=== PATIENT | male | born 1955 | race African-American/Black ===

== ENCOUNTER 2020-06-25 12:07 | Inpatient (IN) | payer OTHER ==
[2020-06-25 12:27] VITALS: BMI 30.6
[2020-06-25] MEDS ORDERED: SODIUM CHLORIDE 1,000 ML IV ONE (12:28)
[2020-06-25 13:03] LABS: VENOUS BASE EXCESS -2.2 mmol/L (-2-2); VENOUS O2 SATURATION 47.8 % (70-80); VENOUS PCO2 60.3 mmHg (38-52); VENOUS PH 7.262 (7.310-7.410)
[2020-06-25 13:04] LABS: BASO % 0.4 % (0-2.0); EOS % 0.1 % (0-4.5); HEMATOCRIT 50.7 % (35.4-49); HEMOGLOBIN 16.5 GM/dL (11.7-16.9); LYMPH % 9.6 % (8-40); MCH 26.3 pg (25.7-33.7); MCHC 32.5 g/dl (32.0-35.9); MEAN CELL VOLUME 80.9 fl (80-96); MEAN PLT VOLUME 9.1 fl (7.5-11.1); MONO % 5.8 % (3.8-10.2); NEUT % 84.1 % (42.8-82.8); PLATELET COUNT 212 K/MM3 (134-434); RBC 6.27 M/mm3 (4.00-5.60); WHITE BLOOD COUNT 15.9 K/mm3 (4.0-10.0)
--- NOTE | 2020-06-25 13:11 | PDOC ---
History of Present Illness - General Chief Complaint: Altered Mental Status Stated Complaint: Blood Sugar Problem Time Seen by Provider: 06/25/20 12:34 History Source: Patient, Spouse Exam Limitations: No Limitations - History of Present Illness Initial Comments: 06/25/20 12:57 64M PMH DM HTN c/o N/V, weakness, thristy, polyuria x6 days. unable to tolerate PO. no cp/sob. denies cough/sore throat/runny nose. NKDA. Past History - Medical History Allergies/Adverse Reactions: Allergies Allergy/AdvReac Type Severity Reaction Status Date / Time No Known Allergies Allergy Verified 06/25/20 12:21 Home Medications: Ambulatory Orders Glipizide [Glipizide ER] 10 mg PO DAILY 06/25/20 Hydrochlorothiazide 25 mg PO DAILY 06/25/20 Losartan Potassium 25 mg PO DAILY 06/25/20 Lovastatin 10 mg PO DAILY 06/25/20 Sildenafil Citrate 100 mg PO DAILY 06/25/20 COPD: No Diabetes: Yes HTN: Yes - Psycho-Social/Smoking History Smoking History: Never smoked - Substance Abuse Hx (Audit-C & DAST Scrn) How often the patient has a drink containing alcohol: Never Score: In Men: 4 or > Positive; In Women: 3 or > Positive: 0 Screen Result (Pos requires Nsg. Audit-10AR): Negative Review of Systems - Review of Systems Comments:: CONSTITUTIONAL: Denies F / C HEENT: +thrist. Denies sore throat, rhinorrhea RESP: Denies SOB, cough CARD: Denies chest pain GI: + N / V, inability to tolerate PO : + urinary frequency NEURO: Denies numbness, tingling, weakness MSK: Denies back pain SKIN: Denies rashes *Physical Exam - Vital Signs Last Vital Signs Temp Pulse Resp BP Pulse Ox 98.0 F 80 20 120/82 98 06/25/20 12:22 06/25/20 12:22 06/25/20 12:22 06/25/20 12:22 06/25/20 12:22 - Physical Exam GEN: awake and alert HEENT: NC/AT, EOMI, PERRL. Normal voice. Supple neck w/ FROM. CV: S1/S2, RRR, no m/r/g LUNG: CTAB, no wheezes, crackles, rales, rhonchi. GI: Obese, soft, ndnt, +BS, no guarding, no rebound. MSK: contracted RUE o/w no obvious deformities SKIN: Warm, dry, no rashes appreciated. PSYCH: Normal mood and affect. NEURO: Moving all extremities aside from contracted RUE. ED Treatment Course - LABORATORY CBC & Chemistry Diagram: 06/25/20 12:49 06/25/20 21:30 - ADDITIONAL ORDERS Additional order review: Laboratory Results 06/25/20 12:21 POC Glucometer > 600 06/25/20 12:21 POC Glucometer > 600 Medical Decision Making - Medical Decision Making 64M diabetic w/ 1 week of n/v/weakness, polyuria, thirst, and PO intolerance. BGM >600. Concern for DKA vs HHS. Will evaluate for infectious etiologies. - CBC, CMP, Beta-hydroxybutyrate - VBG - CXR - EKG - Fluids 06/25/20 13:53 labs were reviewed acidosis, beta hydroxybutyrate elevated, Bicarb wnl, no elevated anion gap, glc 700s Pt is hyperglycemic at this point but does not meet HHS or DKA criteria; borderline DKA. will recheck BMP and BGM he has received 2L NS will provide 1L LR with 20mEq K will provide 8 units insulin 06/25/20 15:[address] Owen for admission to telemetry; requesting consult to be placed for Dr. Blanchard. 06/25/20 22:00 EKG 12:10 HR 84 axis and intervals nl, NSR, no MARIBEL/D, no TWI Discharge - Discharge Information Problems reviewed: Yes Clinical Impression/Diagnosis: DKA (diabetic ketoacidoses) Qualifiers: Diabetes mellitus type: other specified (including ROBERT) Diabetes mellitus complication detail: without coma Qualified Code(s): E13.10 - Other specified diabetes mellitus with ketoacidosis without coma Condition: Fair - Follow up/Referral - Patient Discharge Instructions - Post Discharge Activity
[2020-06-25 13:16] LABS: EPI CELLS 1 /uL (0-25.1); HYALINE CASTS 0 /uL (0-3.1); PH,URINE 5.5 (5.0-8.0); URINE APPEARANCE CLEAR; URINE BACTERIA 8 /uL (0-1359); URINE BILIRUBIN NEGATIVE (NEGATIVE); URINE COLOR YELLOW; URINE GLUCOSE (UA) 3+ (NEGATIVE); URINE KETONE 1+ (NEGATIVE); URINE LEUK ESTERASE NEGATIVE (NEGATIVE); URINE NITRITE NEGATIVE (NEGATIVE); URINE PROTEIN NEGATIVE (NEGATIVE); URINE RBC 2 /uL (0-23.9); URINE UROBILINOGEN 0.2 mg/dL (0.2-1.0); URINE WBC 2 /uL (0-25.8)
[2020-06-25 13:26] LABS: ALBUMIN 3.8 g/dl (3.4-5.0); BILIRUBIN,TOTAL 1.1 mg/dL (0.2-1); BLOOD UREA NITROGEN 66.9 mg/dL (7-18); CALCIUM 9.3 mg/dL (8.5-10.1); CREATININE 2.7 mg/dL (0.55-1.3); POTASSIUM 4.5 mmol/L (3.5-5.1); TOT PROT 8.2 g/dl (6.4-8.2)
--- NOTE | 2020-06-25 13:39 | EKG ---
Test Reason : Blood Pressure : / mmHG Vent. Rate : 084 BPM Atrial Rate : 084 BPM P-R Int : 154 ms QRS Dur : 080 ms QT Int : 386 ms P-R-T Axes : 051 -07 021 degrees QTc Int : 456 ms NORMAL SINUS RHYTHM NORMAL ECG NO PREVIOUS ECGS AVAILABLE Confirmed by Luis Armando Ewing MD ([id number]) on 06/25/2020 1:39:03 PM Referred By: Confirmed By:Luis Armando Ewing MD
[2020-06-25] MEDS ORDERED: INSULIN REGULAR HUMAN 100 UNITS/ML *VIAL IVPUSH ONE (13:53)
[2020-06-25] MEDS ORDERED: POTASSIUM CHLORIDE 20 MEQ in LACTATED RINGERS SOLUTION 1,000 ML IV ONE (14:02)
[2020-06-25 14:10] LABS: INR 1.03 (0.83-1.09); PROTHROMBIN TIME (PATIENT) 12.1 SEC (9.7-13.0)
[2020-06-25 14:13] LABS: ACTIVATED PTT 23.4 SECONDS (25.2-36.5)
--- NOTE | 2020-06-25 14:14 | PDOC ---
Attending Attestation - Resident Resident Name: IbarraEmmanuel - ED Attending Attestation I have performed the following: I have examined & evaluated the patient, The case was reviewed & discussed with the resident, I agree w/resident's findings & plan - HPI HPI: 06/25/20 14:11 64-year-old male with history of xdk-jllhdqf-vvqpwgyeb diabetes presents with generalized weakness, nausea/vomiting, hyperglycemia. Some chills but no measured fevers or symptoms of infectious process. Reportedly compliant with medications, but not with diet. - Physicial Exam PE: 06/25/20 14:12 Afebrile, vital signs stable, foike-ck-dfwy glucose over 500 Dry mucosa Heart is regular, lungs are clear Abdomen benign Chronic atrophied right upper extremity, no edema Neurologically nonfocal - Critical Care Time Total Critical Care Time: 70 Critical Care Statement: The care of this patient involved high complexity decision making to prevent further life threatening deterioration of the patient's condition and/or to evaluate & treat vital organ system(s) failure or risk of failure. - Medical Decision Making 06/25/20 14:13 64-year-old male with history of xzg-iqnmkwn-iklfbykat diabetes presents with hyperglycemia and generalized weakness/nausea/vomiting, rule out DKA versus hyperosmolar state. r/o infectious process. labs, ua ekg, cxr ivf, insulin admit Heart Score/ECG Review #1 ECG reviewed & interpreted by me at: 12:10 General ECG Interpretation: Sinus Rhythm, Normal Rate (84), Normal Intervals (qtc 456), No acute ischemic changes Discharge - Discharge Information Problems reviewed: Yes Clinical Impression/Diagnosis: DKA (diabetic ketoacidoses) Qualifiers: Diabetes mellitus type: other specified (including ROBERT) Diabetes mellitus complication detail: without coma Qualified Code(s): E13.10 - Other specified diabetes mellitus with ketoacidosis without coma Condition: Fair - Follow up/Referral Referrals: Juan José Negrete MD [Primary Care Provider] - - Patient Discharge Instructions - Post Discharge Activity
[2020-06-25] MEDS ORDERED: ACETAMINOPHEN 325 MG TABLET (FP) PO PRN (15:28)
--- OUTSIDE RECORDS SUMMARY | 2020-06-25 15:38 | XMS ---
:1955 [facility] Support Name Relationship Address Phone RE Unavailable Unavailable Unavailable MAXIMO ESPINOZA [address] [facility] [phone] [id number] EMPLOYER Unavailable Unavailable Unavailable Re-disclosure Warning The records that you are about to access may contain information from federally- assisted alcohol or drug abuse programs. If such information is present, then the following federally mandated warning applies: This information has been disclosed to you from records protected by federal confidentiality rules (42 CFR part 2). The federal rules prohibit you from making any further disclosure of this information unless further disclosure is expressly permitted by the written consent of the person to whom it pertains or as otherwise permitted by 42 CFR part 2. A general authorization for the release of medical or other information is NOT sufficient for this purpose. The Federal rules restrict any use of the information to criminally investigate or prosecute any alcohol or drug abuse patient.The records that you are about to access may contain highly sensitive health information, the redisclosure of which is protected by Article 27-F of the [place] State Public Health law. If you continue you may haveaccess to information: Regarding HIV / AIDS; Provided by facilities licensed or operated by the [facility] Office of Mental Health; or Provided by the [facility] Office for People With Developmental Disabilities. If such information is present, then the following [facility] mandated warning applies: This information has been disclosed to you from confidential records which are protected by state law. State law prohibits you from making any further disclosure of this information without the specific written consent of the person to whom it pertains, or as otherwise permitted by law. Any unauthorized further disclosure in violation of state law may result in a fine or fci sentence or both. A general authorization for the release of medical or other information is NOT sufficient authorization for further disclosure. Encounters Encounter Providers Location Date Indications Data Source(s ) Outpatient 06/07/2020 04:50:00 [facility]T [facility] Outpatient 06/07/2020 12:00:00 [facility] AM EDT Center Insurance Providers Payer name Policy type Policy ID Covered Covered republican's Policy P ariel / Coverage republican ID relationship to [employer] Inf ormation type are[employer]o HIP MEDICARE [id number] [facility] [id number] 01 [id number] [place] [id number] S [id number] [place] Medicare [id number] S [id number] A [facility] Services Problems, Conditions, and Diagnoses Code Display Name Description Problem Type Effective Data Sour ce(s) Dates 401.9 UNSPECIFIED Hypertenstion Diagnosis 11/22/2018 RADHA ( [facility] ESSENTIAL unsepecified 07:12:36 PM Sid HYPERTENSION [facility]) 427.9 CARDIAC CARDIAC ARRYTHMIA Diagnosis 11/22/2018 KAMILA Gould ([facility] DYSRHYTHMIA 07:12:36 PM Sid UNSPECIFIED [facility])
[2020-06-25 15:43] LABS: BLOOD UREA NITROGEN 61.9 mg/dL (7-18); CALCIUM 8.9 mg/dL (8.5-10.1); CREATININE 2.3 mg/dL (0.55-1.3); POTASSIUM 4.5 mmol/L (3.5-5.1)
--- NOTE | 2020-06-25 18:53 | CONSULT ---
Consult Consult Specialty:: Endocrine Referred by:: DR.Ammir Owen Reason for Consultation:: Diabetes mellitus type 2 - History of Present Illness Chief Complaint: Nausea and vomiting History of Present Illness: 64-year-old male with history Type 2 DM,admitted for weakness, nausea/vomiting, hyperglycemia. Found to have DKA. Some chills but no measured fevers or symptoms of infectious process. Had been taking medication for diabetes yet unaware of blood sugars has not been checking, has blurred vision, weigh loss and constant thirst.denies fever cough and chest pain. - Smoking History Smoking history: Never smoked Home Medications - Allergies Allergies/Adverse Reactions: Allergies Allergy/AdvReac Type Severity Reaction Status Date / Time No Known Allergies Allergy Verified 06/25/20 12:21 - Home Medications Home Medications: Ambulatory Orders Glipizide [Glipizide ER] 10 mg PO DAILY 06/25/20 Hydrochlorothiazide 25 mg PO DAILY 06/25/20 Losartan Potassium 25 mg PO DAILY 06/25/20 Lovastatin 10 mg PO DAILY 06/25/20 Sildenafil Citrate 100 mg PO DAILY 06/25/20 Review of Systems - Review of Systems Constitutional: reports: Lethargy, Unintentional Wgt. Loss Eyes: reports: Blurred Vision HENT: reports: No Symptoms Neck: reports: No Symptoms Cardiovascular: reports: Shortness of Breath Respiratory: reports: Exercise Intolerance, SOB Gastrointestinal: reports: Bloating, Nausea Genitourinary: reports: Frequency Breasts: reports: No Symptoms Reported Musculoskeletal: reports: No Symptoms Neurological: reports: Numbness, Weakness Endocrine: reports: Intolerance to Cold Hematology/Lymphatic: reports: No Symptoms Physical Exam Vital Signs: Vital Signs Temperature 98.0 F 06/25/20 12:22 Pulse Rate 91 H 06/25/20 14:20 Respiratory Rate 22 H 06/25/20 14:20 Blood Pressure 124/86 06/25/20 14:20 O2 Sat by Pulse Oximetry (%) 97 06/25/20 14:20 Labs: CBC, BMP 06/25/20 12:49 06/25/20 15:05
[2020-06-25 20:19] LABS: CALCIUM 9.3 mg/dL (8.5-10.1); CREATININE 2.1 mg/dL (0.55-1.3); POTASSIUM 4.6 mmol/L (3.5-5.1)
[2020-06-25] MEDS: SODIUM CHLORIDE 0.45% 1,000 ML IV SCH (21:00)
[2020-06-25 22:21] LABS: POTASSIUM 4.8 mmol/L (3.5-5.1)
--- NOTE | 2020-06-25 22:26 | PN ---
Progress Note, Physician Chief Complaint: high sugar on iv fluids less nauseas - Current Medication List Current Medications: Active Medications Acetaminophen (Tylenol -) 325 mg PO Q6H PRN PRN Reason: FEVER Heparin Sodium (Porcine) (Heparin -) 5,000 unit SQ BID ROSALEE Sodium Chloride (1/2 Normal Saline) 1,000 mls @ 100 mls/hr IV ASDIR ROSALEE Insulin Aspart (Novolog Vial Sliding Scale -) 1 vial SQ Q4H ROSALEE; Protocol Insulin Detemir (Levemir Vial) 30 units SQ BID ROSALEE Losartan Potassium (Cozaar -) 50 mg PO DAILY ROSALEE - Objective Vital Signs: Vital Signs Temperature 97.8 F 06/25/20 19:10 Pulse Rate 84 06/25/20 19:10 Respiratory Rate 20 06/25/20 19:10 Blood Pressure 159/89 06/25/20 19:10 O2 Sat by Pulse Oximetry (%) 97 06/25/20 19:10 Constitutional: Yes: Anxious Eyes: Yes: EOM Intact HENT: Yes: Normocephalic Labs: CBC, BMP 06/25/20 12:49 06/25/20 21:30 INR, PTT INR 1.03 (0.83-1.09) 06/25/20 13:40 Problem List - Problems (1) Controlled diabetes mellitus with hyperglycemia, with long-term current use of insulin Problems reviewed: Yes Code(s): E11.65 - TYPE 2 DIABETES MELLITUS WITH HYPERGLYCEMIA; 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 Assessment/Plan Current Active Problems DKA (diabetic ketoacidoses) (Acute) hyperglycemia dehydration hypovolemiia Abnormal Lab Results 06/25/20 06/25/20 06/25/20 12:49 12:49 12:49 WBC 15.9 H RBC 6.27 H Hct 50.7 H Absolute Neuts (auto) 13.3 H Neutrophils % 84.1 H PTT (Actin FS) VBG pH POC VBG pCO2 VBG O2 Sat (Major) VBG Base Excess Sodium Chloride 95 L BUN 66.9 H Creatinine 2.7 H Random Glucose 743 H* Lactic Acid Total Bilirubin 1.1 H Beta-Hydroxybutyrate 38.3 H Urine Glucose (UA) Urine Ketones 06/25/20 06/25/20 06/25/20 12:49 12:50 12:50 WBC RBC Hct Absolute Neuts (auto) Neutrophils % PTT (Actin FS) VBG pH 7.262 L POC VBG pCO2 60.3 H VBG O2 Sat (Major) 47.8 L VBG Base Excess -2.2 L Sodium Chloride BUN Creatinine Random Glucose Lactic Acid 2.8 H* Total Bilirubin Beta-Hydroxybutyrate Urine Glucose (UA) 3+ H Urine Ketones 1+ H 06/25/20 06/25/20 06/25/20 13:40 15:05 15:05 WBC RBC Hct Absolute Neuts (auto) Neutrophils % PTT (Actin FS) 23.4 L VBG pH POC VBG pCO2 VBG O2 Sat (Major) VBG Base Excess Sodium Chloride BUN 61.9 H Creatinine 2.3 H Random Glucose 616 H* Lactic Acid 2.2 H* Total Bilirubin Beta-Hydroxybutyrate Urine Glucose (UA) Urine Ketones 06/25/20 06/25/20 18:55 21:30 WBC RBC Hct Absolute Neuts (auto) Neutrophils % PTT (Actin FS) VBG pH POC VBG pCO2 VBG O2 Sat (Major) VBG Base Excess Sodium 146 H Chloride 108 H BUN 57.0 H Creatinine 2.1 H Random Glucose 494 H* Lactic Acid Total Bilirubin Beta-Hydroxybutyrate Urine Glucose (UA) Urine Ketones plan: ivfluid rehydration insulin coverage q4hrs levemir 30units now and bid renal consult repeat bmp hba1c diet nutrition consult
[2020-06-25] MEDS: INSULIN SLIDING SCALE (NOVOLOG) 1 VIAL SQ SCH (22:59)
[2020-06-25] MEDS: HEPARIN NA (PORCINE) 5,000 UNITS/ML 1ML VIAL SQ SCH (22:59)
[2020-06-25] MEDS ORDERED: INSULIN (LEVEMIR) 100 UNITS/ML UNITS SQ ONE (23:15)
[2020-06-26] MEDS: INSULIN SLIDING SCALE (NOVOLOG) 1 VIAL SQ SCH ×6 (02:38→21:46)
[2020-06-26 07:30] LABS: HEMATOCRIT 47.3 % (35.4-49); HEMOGLOBIN 15.6 GM/dL (11.7-16.9); MCH 26.1 pg (25.7-33.7); PLATELET COUNT 188 K/MM3 (134-434); RBC 5.99 M/mm3 (4.00-5.60); WHITE BLOOD COUNT 13.4 K/mm3 (4.0-10.0)
--- NOTE | 2020-06-26 07:39 | CONSULT ---
Consult Consult Specialty:: Nephrology Reason for Consultation:: ARON - History of Present Illness Chief Complaint: weakness and polyuria History of Present Illness: Pt is a 64 year old garrett who presents to the er with weakness and polyuria. He has history of DM. He was found to be hyperglycemic. He was also found to be in acute renal failure and I was called to evaluate him. HE denies dysuria or hematuria. He says that he ran out of his insulin. He denies chest pain or shortness of breath. He denies fevers or chills. He did have nausea and vomiting. - History Source History Provided By: Patient - Past Medical History Cardio/Vascular: Yes: HTN, Hyperlipdemia Endocrine: Yes: Diabetes Mellitus - Smoking History Smoking history: Never smoked Have you smoked in the past 12 months: No Home Medications - Allergies Allergies/Adverse Reactions: Allergies Allergy/AdvReac Type Severity Reaction Status Date / Time No Known Allergies Allergy Verified 06/26/20 13:39 - Home Medications Home Medications: Ambulatory Orders Glipizide [Glipizide ER] 10 mg PO DAILY 06/25/20 Hydrochlorothiazide 25 mg PO DAILY 06/25/20 Losartan Potassium 25 mg PO DAILY 06/25/20 Lovastatin 10 mg PO DAILY 06/25/20 Sildenafil Citrate 100 mg PO DAILY 06/25/20 Family Medical History Family History: Denies Review of Systems - Review of Systems Constitutional: reports: Malaise Eyes: reports: No Symptoms HENT: reports: No Symptoms Neck: reports: No Symptoms Cardiovascular: reports: No Symptoms Respiratory: reports: No Symptoms Gastrointestinal: reports: Nausea, Vomiting Genitourinary: reports: No Symptoms Musculoskeletal: reports: No Symptoms Integumentary: reports: No Symptoms Neurological: reports: No Symptoms Endocrine: reports: No Symptoms Hematology/Lymphatic: reports: No Symptoms Physical Exam Vital Signs: Vital Signs Temperature 98 F 06/26/20 06:00 Pulse Rate 87 06/26/20 06:00 Respiratory Rate 17 06/26/20 06:00 Blood Pressure 125/72 06/26/20 06:00 O2 Sat by Pulse Oximetry (%) 96 06/26/20 06:00 Constitutional: Yes: Calm Eyes: Yes: Conjunctiva Clear HENT: Yes: Atraumatic Neck: Yes: Supple Cardiovascular: Yes: S1, S2 Respiratory: Yes: CTA Bilaterally Gastrointestinal: Yes: Soft Musculoskeletal: Yes: WNL Edema: No Neurological: Yes: Oriented Psychiatric: Yes: Oriented Labs: CBC, BMP 06/25/20 21:30 Imaging - Results Ultrasound: Report Reviewed Assessment/Plan Current Medications Generic Name Dose Route Start Last Admin Trade Name Gm PRN Reason Stop Dose Admin Acetaminophen 325 mg 06/25/20 15:28 Tylenol - PO Q6H PRN FEVER Heparin Sodium (Porcine) 5,000 unit 06/25/20 22:00 06/25/20 22:59 Heparin - SQ 5,000 unit BID ROSALEE Administration Sodium Chloride 1,000 mls @ 100 mls/hr 06/25/20 19:00 06/25/20 21:00 1/2 Normal Saline IV 100 mls/hr ASDIR ROSALEE Administration Insulin Aspart 1 vial 06/25/20 22:30 06/26/20 06:24 Novolog Vial Sliding Scale - SQ 9 units Q4H ROSALEE Administration Protocol Insulin Detemir 30 units 06/26/20 10:00 Levemir Vial SQ BID ROSALEE Losartan Potassium 50 mg 06/26/20 10:00 Cozaar - PO DAILY [facility] Laboratory Tests 06/25/20 06/25/20 06/25/20 12:49 12:49 12:50 WBC 15.9 H Hgb Sodium Potassium Creatinine 2.7 H Ur Specific Alliance 1.022 Urine Glucose (UA) 3+ H Urine Blood Trace 06/25/20 06/25/20 06/26/20 15:05 18:55 06:23 WBC 13.4 H Hgb 15.6 Sodium Potassium Creatinine 2.3 H 2.1 H Ur Specific Alliance Urine Glucose (UA) Urine Blood 06/26/20 06:23 WBC Hgb Sodium 147 H Potassium 4.1 Creatinine 1.6 H Ur Specific Alliance Urine Glucose (UA) Urine Blood Impression 1. ARON 2. dehydration 3. DM - poorly controlled 4. htn 5. hld Plan - cont fluids - renal function improving - aron likely from prolonged pre-renal disease secondary to uncontrolled DM - hold losartan as bp is low - reviewed renal ultrasound
--- NOTE | 2020-06-26 07:59 | HP ---
Admitting History and Physical - Primary Care Physician PCP: Yaima Owen - Admission Chief Complaint: WEAKNESS, HYPERGLYCEMIA History of Present Illness: 64-year-old male with history of deh-qkiuitf-fbqaidrss diabetes presents with generalized weakness, nausea/vomiting, hyperglycemia. Some chills but no measured fevers or symptoms of infectious process. Reportedly compliant with medications, but not with diet. 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 Gastrointestinal: Yes: GERD Endocrine: Yes: Diabetes Mellitus - Smoking History Smoking history: Never smoked Have you smoked in the past 12 months: No Home Medications - Allergies Allergies/Adverse Reactions: Allergies Allergy/AdvReac Type Severity Reaction Status Date / Time No Known Allergies Allergy Verified 06/25/20 12:21 - Home Medications Home Medications: Ambulatory Orders Glipizide [Glipizide ER] 10 mg PO DAILY 06/25/20 Hydrochlorothiazide 25 mg PO DAILY 06/25/20 Losartan Potassium 25 mg PO DAILY 06/25/20 Lovastatin 10 mg PO DAILY 06/25/20 Sildenafil Citrate 100 mg PO DAILY 06/25/20 Review of Systems - Review of Systems Constitutional: reports: Weakness Cardiovascular: reports: No Symptoms Respiratory: reports: No Symptoms Gastrointestinal: reports: Abdominal Pain Genitourinary: reports: No Symptoms Musculoskeletal: reports: Muscle Weakness Integumentary: reports: No Symptoms Neurological: reports: No Symptoms Endocrine: reports: No Symptoms Hematology/Lymphatic: reports: No Symptoms Psychiatric: reports: No Symptoms Physical Examination Vital Signs: Vital Signs Temperature 98 F 06/26/20 06:00 Pulse Rate 87 06/26/20 06:00 Respiratory Rate 17 06/26/20 06:00 Blood Pressure 125/72 06/26/20 06:00 O2 Sat by Pulse Oximetry (%) 96 06/26/20 06:00 Constitutional: Yes: Mild Distress Cardiovascular: Yes: WNL Respiratory: Yes: WNL Gastrointestinal: Yes: WNL Musculoskeletal: Yes: Back Pain Edema: No Integumentary: Yes: WNL Wound/Incision: Yes: Clean/Dry Neurological: Yes: Numbness, Paresthesia, Pre-Existing Deficit ...Motor Strength: LLE, RLE Labs: CBC, BMP 06/25/20 21:30 Problem List - Problems (1) Diabetic neuropathic arthropathy Code(s): E11.610 - TYPE 2 DIABETES MELLITUS W DIABETIC NEUROPATHIC ARTHROPATHY (2) Controlled diabetes mellitus with hyperglycemia, with long-term current use of insulin Code(s): E11.65 - TYPE 2 DIABETES MELLITUS WITH HYPERGLYCEMIA; 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
[2020-06-26 09:16] LABS: ALBUMIN 3.4 g/dl (3.4-5.0); BILIRUBIN,TOTAL 1.4 mg/dL (0.2-1); BLOOD UREA NITROGEN 39.2 mg/dL (7-18); CREATININE 1.6 mg/dL (0.55-1.3); POTASSIUM 4.1 mmol/L (3.5-5.1); TOT PROT 7.3 g/dl (6.4-8.2)
[2020-06-26] MEDS: INSULIN (LEVEMIR) 100 UNITS/ML UNITS SQ SCH ×2 (09:18→21:45)
[2020-06-26] MEDS: HEPARIN NA (PORCINE) 5,000 UNITS/ML 1ML VIAL SQ SCH ×2 (09:19→21:45)
[2020-06-26] MEDS ORDERED: LOSARTAN POTASSIUM 50 MG TABLET PO SCH (10:00)
[2020-06-26] MEDS: SODIUM CHLORIDE 0.45% 1,000 ML IV SCH (19:45)
[2020-06-27] MEDS: INSULIN SLIDING SCALE (NOVOLOG) 1 VIAL SQ SCH ×4 (06:37→22:31)
[2020-06-27 08:10] LABS: ALBUMIN 2.9 g/dl (3.4-5.0); BILIRUBIN,TOTAL 1.1 mg/dL (0.2-1); BLOOD UREA NITROGEN 24.1 mg/dL (7-18); CALCIUM 8.2 mg/dL (8.5-10.1); CREATININE 1.2 mg/dL (0.55-1.3); POTASSIUM 3.3 mmol/L (3.5-5.1); TOT PROT 6.3 g/dl (6.4-8.2)
[2020-06-27] MEDS ORDERED: PT OWN MED DRAWER 7, Y5N ONE (09:44)
[2020-06-27] MEDS: INSULIN (LEVEMIR) 100 UNITS/ML UNITS SQ SCH ×2 (09:47→22:31)
[2020-06-27] MEDS: HEPARIN NA (PORCINE) 5,000 UNITS/ML 1ML VIAL SQ SCH ×2 (09:47→22:29)
[2020-06-27] MEDS ORDERED: INSULIN SLIDING SCALE (NOVOLOG) 1 VIAL SQ SCH (10:00)
[2020-06-27] MEDS ORDERED: POTASSIUM CHLORIDE ORAL LIQUID 20 MEQ/15 ML PO ONE (14:31)
--- NOTE | 2020-06-27 14:33 | PN ---
Progress Note, Physician History of Present Illness: Pt seen and examined at bedside. He is awake and appears comfortable. he is tolerating diet. - Current Medication List Current Medications: Active Medications Acetaminophen (Tylenol -) 325 mg PO Q6H PRN PRN Reason: FEVER Heparin Sodium (Porcine) (Heparin -) 5,000 unit SQ BID ROSALEE Last Admin: 06/27/20 09:47 Dose: 5,000 unit Documented by: Sodium Chloride (1/2 Normal Saline) 1,000 mls @ 100 mls/hr IV ASDIR ROSALEE Last Admin: 06/26/20 19:45 Dose: 100 mls/hr Documented by: Insulin Aspart (Novolog Vial Sliding Scale -) 1 vial SQ ACHS [facility]; Protocol Last Admin: 06/27/20 11:06 Dose: 10 units Documented by: Insulin Detemir (Levemir Vial) 35 units SQ BID ROSLAEE Last Admin: 06/27/20 09:47 Dose: 35 units Documented by: - Objective Vital Signs: Vital Signs Temperature 98.2 F 06/27/20 09:00 Pulse Rate 101 H 06/27/20 09:00 Respiratory Rate 20 06/27/20 09:00 Blood Pressure 111/62 06/27/20 09:00 O2 Sat by Pulse Oximetry (%) 95 06/27/20 09:00 Constitutional: Yes: Calm Eyes: Yes: Conjunctiva Clear HENT: Yes: Atraumatic Neck: Yes: Supple Cardiovascular: Yes: S1, S2 Respiratory: Yes: CTA Bilaterally Gastrointestinal: Yes: Soft Genitourinary: Yes: WNL Musculoskeletal: Yes: WNL Edema: No Neurological: Yes: Oriented Psychiatric: Yes: Oriented Labs: CBC, BMP 06/26/20 06:23 06/27/20 06:13 INR, PTT INR 1.03 (0.83-1.09) 06/25/20 13:40 Assessment/Plan Current Medications Generic Name Dose Route Start Last Admin Trade Name Freq PRN Reason Stop Dose Admin Acetaminophen 325 mg 06/25/20 15:28 Tylenol - PO Q6H PRN FEVER Heparin Sodium (Porcine) 5,000 unit 06/25/20 22:00 06/27/20 09:47 Heparin - SQ 5,000 unit BID ROSALEE Administration Sodium Chloride 1,000 mls @ 100 mls/hr 06/25/20 19:00 06/26/20 19:45 1/2 Normal Saline IV 100 mls/hr ASDIR ROSALEE Administration Insulin Aspart 1 vial 06/27/20 07:00 06/27/20 11:06 Novolog Vial Sliding Scale - SQ 10 units ACHS ROSALEE Administration Protocol Insulin Detemir 35 units 06/27/20 01:52 06/27/20 09:47 Levemir Vial SQ 35 units BID ROSALEE Administration Losartan Potassium 50 mg 06/28/20 10:00 Cozaar - PO DAILY [facility] Potassium Chloride 40 meq 06/27/20 14:31 Potassium Chloride Oral Liquid PO 06/27/20 14:32 ONCE ONE Impression 1. ARON 2. dehydration 3. DM - poorly controlled 4. htn 5. hld Plan - renal function improving - can restart losartan at 50 mg - will decrease fluids - replace potassium - discussed importance of compliance - outpt follow up
[2020-06-27] MEDS ORDERED: SODIUM CHLORIDE 0.45%/POT 20 MEQ/1,000 ML INFUS.BAG IV SCH (14:45)
--- NOTE | 2020-06-27 18:01 | PN ---
Progress Note, Physician Chief Complaint: Diabetic ketoacidosis ARON Hypokalemia Leukocytosis Nausea/Vomiting - Current Medication List Current Medications: Active Medications Acetaminophen (Tylenol -) 325 mg PO Q6H PRN PRN Reason: FEVER Heparin Sodium (Porcine) (Heparin -) 5,000 unit SQ BID [facility] Last Admin: 06/27/20 09:47 Dose: 5,000 unit Documented by: Potassium Chloride/Sodium Chloride (1/2ns+20meq Kcl) 20 meq in 1,000 mls @ 42 mls/hr IV ASDIR [facility] Last Admin: 06/27/20 15:26 Dose: 42 mls/hr Documented by: Insulin Aspart (Novolog Vial Sliding Scale -) 1 vial SQ ACHS [facility]; Protocol Last Admin: 06/27/20 17:24 Dose: 9 units Documented by: Insulin Detemir (Levemir Vial) 35 units SQ BID [facility] Last Admin: 06/27/20 09:47 Dose: 35 units Documented by: Losartan Potassium (Cozaar -) 50 mg PO DAILY [facility] - Objective Vital Signs: Vital Signs Temperature 98.2 F 06/27/20 14:00 Pulse Rate 88 06/27/20 14:00 Respiratory Rate 20 06/27/20 14:00 Blood Pressure 106/70 06/27/20 14:00 O2 Sat by Pulse Oximetry (%) 95 06/27/20 14:00 Constitutional: Yes: Well Nourished, No Distress, Calm Cardiovascular: Yes: Regular Rate and Rhythm Respiratory: Yes: Regular, CTA Bilaterally Gastrointestinal: Yes: Normal Bowel Sounds, Soft Genitourinary: Yes: WNL Musculoskeletal: Yes: WNL Extremities: Yes: WNL Edema: No Peripheral Pulses WNL: Yes Neurological: Yes: Alert, Oriented Psychiatric: Yes: Alert, Oriented Labs: CBC, BMP 06/26/20 06:23 06/27/20 06:13 INR, PTT INR 1.03 (0.83-1.09) 06/25/20 13:40 Problem List - Problems (1) Hypokalemia Assessment/Plan: -Nephrology consult -KCl 40 meq po once -Repeat CMP in AM Problems reviewed: Yes Code(s): E87.6 - HYPOKALEMIA (2) DKA (diabetic ketoacidoses) Assessment/Plan: -Endocrine consult appreciated -IVF -A1c 12.9 -BGM AC HS -Levemir 35 U BID -Diabetic diet Problems reviewed: Yes Code(s): E11.10 - TYPE 2 DIABETES MELLITUS WITH KETOACIDOSIS WITHOUT COMA Qualifiers: Diabetes mellitus type: other specified (including ROBERT) Diabetes mellitus complication detail: without coma Qualified Code(s): E13.10 - Other specified diabetes mellitus with ketoacidosis without coma (3) ARON (acute kidney injury) Assessment/Plan: -Nephrology on board -Cr trending down -Continue IVF Problems reviewed: Yes Code(s): N17.9 - ACUTE KIDNEY FAILURE, UNSPECIFIED (4) Leukocytosis Assessment/Plan: -Likely reactive -trending down Problems reviewed: Yes Code(s): D72.829 - ELEVATED WHITE BLOOD CELL COUNT, UNSPECIFIED Assessment/Plan See problem list
[2020-06-28] MEDS: INSULIN SLIDING SCALE (NOVOLOG) 1 VIAL SQ SCH ×2 (07:00→11:59)
[2020-06-28 09:08] LABS: BASO % 0.4 % (0-2.0); EOS % 1.2 % (0-4.5); HEMATOCRIT 40.3 % (35.4-49); HEMOGLOBIN 13.5 GM/dL (11.7-16.9); LYMPH % 26.5 % (8-40); MCH 26.6 pg (25.7-33.7); MCHC 33.6 g/dl (32.0-35.9); MEAN CELL VOLUME 79.3 fl (80-96); MEAN PLT VOLUME 8.9 fl (7.5-11.1); MONO % 8.4 % (3.8-10.2); NEUT % 63.5 % (42.8-82.8); PLATELET COUNT 117 K/MM3 (134-434); RBC 5.09 M/mm3 (4.00-5.60); RDW 13.8 % (11.9-15.9); WHITE BLOOD COUNT 9.3 K/mm3 (4.0-10.0)
[2020-06-28 09:15] LABS: ALBUMIN 2.7 g/dl (3.4-5.0); BILIRUBIN,TOTAL 1.1 mg/dL (0.2-1); BLOOD UREA NITROGEN 14.9 mg/dL (7-18); CALCIUM 7.9 mg/dL (8.5-10.1); CREATININE 1.1 mg/dL (0.55-1.3); MAGNESIUM 2.1 mg/dL (1.8-2.4); POTASSIUM 3.5 mmol/L (3.5-5.1)
[2020-06-28] MEDS ORDERED: LOSARTAN POTASSIUM 50 MG TABLET PO SCH (10:00)
--- NOTE | 2020-06-28 10:00 | PN ---
Progress Note, Physician - Current Medication List Current Medications: Active Medications Acetaminophen (Tylenol -) 325 mg PO Q6H PRN PRN Reason: FEVER Heparin Sodium (Porcine) (Heparin -) 5,000 unit SQ BID [facility] Last Admin: 06/27/20 22:29 Dose: 5,000 unit Documented by: Potassium Chloride/Sodium Chloride (1/2ns+20meq Kcl) 20 meq in 1,000 mls @ 42 mls/hr IV ASDIR [facility] Last Admin: 06/27/20 15:26 Dose: 42 mls/hr Documented by: Insulin Aspart (Novolog Vial Sliding Scale -) 1 vial SQ ACHS [facility]; Protocol Last Admin: 06/28/20 07:00 Dose: Not Given Documented by: Insulin Detemir (Levemir Vial) 35 units SQ BID [facility] Last Admin: 06/27/20 22:31 Dose: 35 units Documented by: Losartan Potassium (Cozaar -) 50 mg PO DAILY [facility] - Objective Vital Signs: Vital Signs Temperature 99.1 F 06/28/20 06:00 Pulse Rate 85 06/28/20 06:00 Respiratory Rate 20 06/28/20 06:00 Blood Pressure 111/66 06/28/20 06:00 O2 Sat by Pulse Oximetry (%) 94 L 06/28/20 06:00 Cardiovascular: Yes: S1, S2 Respiratory: Yes: Regular, CTA Bilaterally Gastrointestinal: Yes: Normal Bowel Sounds, Soft Labs: CBC, BMP 06/28/20 07:57 06/28/20 07:57 INR, PTT INR 1.03 (0.83-1.09) 06/25/20 13:40 Problem List - Problems (1) ARON (acute kidney injury) Code(s): N17.9 - ACUTE KIDNEY FAILURE, UNSPECIFIED (2) Controlled diabetes mellitus with hyperglycemia, with long-term current use of insulin Code(s): E11.65 - TYPE 2 DIABETES MELLITUS WITH HYPERGLYCEMIA; Z79.4 - CORRECTION (CURRENT) USE OF INSULIN (3) DKA (diabetic ketoacidoses) Code(s): E11.10 - TYPE 2 DIABETES MELLITUS WITH KETOACIDOSIS WITHOUT COMA Qualifiers: Diabetes mellitus type: other specified (including ROBERT) Diabetes mellitus complication detail: without coma Qualified Code(s): E13.10 - Other specified diabetes mellitus with ketoacidosis without coma (4) Hypokalemia Code(s): E87.6 - HYPOKALEMIA Assessment/Plan - Problems (1) Hypokalemia Assessment/Plan: -Nephrology consult -KCl 40 meq po once -Repeat CMP noted - dc ivf Problems reviewed: Yes Code(s): E87.6 - HYPOKALEMIA (2) DKA (diabetic ketoacidoses) Assessment/Plan: -Endocrine consult appreciated -dc IVF -A1c 12.9 -BGM AC HS -Levemir 35 U BID -Diabetic diet -compliance discussed Problems reviewed: Yes Code(s): E11.10 - TYPE 2 DIABETES MELLITUS WITH KETOACIDOSIS WITHOUT COMA Qualifiers: Diabetes mellitus type: other specified (including ROBERT) Diabetes mellitus complication detail: without coma Qualified Code(s): E13.10 - Other specified diabetes mellitus with ketoacidosis without coma (3) ARON (acute kidney injury) Assessment/Plan: -Nephrology on board -Cr trending down -dc IVF Problems reviewed: Yes Code(s): N17.9 - ACUTE KIDNEY FAILURE, UNSPECIFIED (4) Leukocytosis Assessment/Plan: -Likely reactive -trending down Problems reviewed: Yes Code(s): D72.829 - ELEVATED WHITE BLOOD CELL COUNT, UNSPECIFIED
[2020-06-28] MEDS ORDERED: PT OWN MED DRAWER 7, Y5N ONE ×2 (10:45→13:15)
[2020-06-28] MEDS: HEPARIN NA (PORCINE) 5,000 UNITS/ML 1ML VIAL SQ SCH (10:49)
[2020-06-28] MEDS: INSULIN (LEVEMIR) 100 UNITS/ML UNITS SQ SCH (10:50)
[2020-06-28] MEDS ORDERED: INSULIN (NOVOLOG) ASPART 100 UNITS/ML 10ML VIAL ONE (11:05)
--- NOTE | 2020-06-28 12:29 | DS ---
Physical Examination Vital Signs: Vital Signs Temperature 99.1 F 06/28/20 06:00 Pulse Rate 85 06/28/20 06:00 Respiratory Rate 20 06/28/20 06:00 Blood Pressure 111/66 06/28/20 06:00 O2 Sat by Pulse Oximetry (%) 94 L 06/28/20 06:00 Labs: CBC, BMP 06/28/20 07:57 06/28/20 07:57 Discharge Summary Problems reviewed: Yes Reason For Visit: DIABETES MELLITUS HYPERGLYCEMIA Current Active Problems ARON (acute kidney injury) (Acute) Controlled diabetes mellitus with hyperglycemia, with long-term current use of insulin (Acute) DKA (diabetic ketoacidoses) (Acute) Diabetic neuropathic arthropathy (Acute) Hypokalemia (Acute) Leukocytosis (Acute) Condition: Fair - Instructions Diet, Activity, Other Instructions: Labs next week Referrals: Juan José Negrete MD [Primary Care Provider] - 1 Week Rich Blanchard MD [Staff Physician] - Margie Gillespie MD [Staff Physician] - Disposition: TRANSFER ACUTE CARE/OTHER HOSP - Home Medications Comprehensive Discharge Medication List: Ambulatory Orders Losartan Potassium 25 mg PO DAILY 06/25/20 Lovastatin 10 mg PO DAILY 06/25/20 Sildenafil Citrate 100 mg PO DAILY 06/25/20 Acetaminophen [Tylenol .Regular Strength -] 325 mg PO Q6H PRN tablet 06/28/20 Insulin (Levemir) [Levemir Vial] 35 units SQ BID #5 amp 06/28/20 Insulin Sliding Scale [Novolog Vial Sliding Scale -] 1 vial SQ ACHS units 06/28/20 Losartan Potassium [Cozaar -] 50 mg PO DAILY #30 tablet 06/28/20
--- NOTE | 2020-06-28 16:14 | PN ---
Progress Note, Physician History of Present Illness: Pt seen and examined at bedside. He is awake and alert. He denies shortness of breath. - Current Medication List Current Medications: Active Medications Acetaminophen (Tylenol -) 325 mg PO Q6H PRN PRN Reason: FEVER Heparin Sodium (Porcine) (Heparin -) 5,000 unit SQ BID [facility] Last Admin: 06/28/20 10:49 Dose: 5,000 unit Documented by: Insulin Aspart (Novolog Vial Sliding Scale -) 1 vial SQ ACHS [facility]; Protocol Last Admin: 06/28/20 11:59 Dose: 9 units Documented by: Insulin Detemir (Levemir Vial) 35 units SQ BID [facility] Last Admin: 06/28/20 10:50 Dose: 35 units Documented by: Losartan Potassium (Cozaar -) 50 mg PO DAILY [facility] Last Admin: 06/28/20 10:50 Dose: 50 mg Documented by: - Objective Vital Signs: Vital Signs Temperature 99.1 F 06/28/20 06:00 Pulse Rate 85 06/28/20 06:00 Respiratory Rate 20 06/28/20 06:00 Blood Pressure 111/66 06/28/20 06:00 O2 Sat by Pulse Oximetry (%) 94 L 06/28/20 06:00 Constitutional: Yes: Calm Eyes: Yes: Conjunctiva Clear HENT: Yes: Atraumatic Neck: Yes: Supple Cardiovascular: Yes: S1, S2 Respiratory: Yes: CTA Bilaterally Gastrointestinal: Yes: Soft Genitourinary: Yes: WNL Musculoskeletal: Yes: WNL Edema: No Neurological: Yes: Oriented Psychiatric: Yes: Oriented Labs: CBC, BMP 06/28/20 07:57 06/28/20 07:57 INR, PTT INR 1.03 (0.83-1.09) 06/25/20 13:40 Assessment/Plan Current Medications Generic Name Dose Route Start Last Admin Trade Name Freq PRN Reason Stop Dose Admin Acetaminophen 325 mg 06/25/20 15:28 Tylenol - PO Q6H PRN FEVER Heparin Sodium (Porcine) 5,000 unit 06/25/20 22:00 06/28/20 10:49 Heparin - SQ 5,000 unit BID [facility] Administration Insulin Aspart 1 vial 06/27/20 07:00 06/28/20 11:59 Novolog Vial Sliding Scale - SQ 9 units ACHS [facility] Administration Protocol Insulin Detemir 35 units 06/27/20 01:52 06/28/20 10:50 Levemir Vial SQ 35 units BID [facility] Administration Losartan Potassium 50 mg 06/28/20 10:00 06/28/20 10:50 Cozaar - PO 50 mg DAILY [facility] Administration Impression 1. ARON 2. dehydration 3. DM - poorly controlled 4. htn 5. hld Plan - cont losartan - renal function improved - outpt follow up - discussed importance of compliance
[2020-06-28 18:23] VITALS: BP 120/60; PULSE 84; TEMP 98.4
== END 2020-06-28 18:25 | disposition home or self-care (01) | DRG 638 ==
LOC: JER 12:07 → JERBED 15:30 → J4W 20:32 → J8W 06-27 14:07
PROVIDERS: ADMIT Family Medicine; ATTEND Family Medicine
DX: E11.10 Type 2 diabetes mellitus with ketoacidosis without coma (principal); N17.9 Acute kidney failure, unspecified; I10 Essential (primary) hypertension; E86.0 Dehydration; E86.1 Hypovolemia; E87.6 Hypokalemia; E11.40 Type 2 diabetes mellitus with diabetic neuropathy, unspecified; E78.5 Hyperlipidemia, unspecified; D72.829 Elevated white blood cell count, unspecified; Z79.84 Long term (current) use of oral hypoglycemic drugs
CPT/HCPCS: 36415; 71045-TC-FY; 76775-TC; 80048; 80051; 80053; 81003; 82010; 82565; 82803; 82962; 83036; 83605; 83735; 84484; 85025; 85027; 85610; 85730; 87086; 87186; 93005; 93010; 97116-GP; 97162-GP; 99291; C9803; J1644; J3480; U0003